=== PATIENT | female | born 1950 | race Caucasian/White ===

== ENCOUNTER 2016-12-30 08:24 | Day surgery (SDC) | payer OTHER, MEDICARE ==
[2016-12-30 08:30] VITALS: BMI 28.0
[2016-12-30] MEDS ORDERED: LIDOCAINE HCL/PF 2% SDV 5ML VIAL ONE (08:30)
[2016-12-30] MEDS ORDERED: PROPOFOL 20 ML ONE ×2 (08:31)
[2016-12-30 09:38] VITALS: TEMP 97.6
[2016-12-30 10:33] VITALS: BP 127/61; PULSE 72
--- NOTE | 2016-12-31 10:45 | PATH ---
Surgical Pathology Report Patient Name: SHELLEY HOUSTON [facility]. Rec. #: [id number] /Age/Gender: 1950 (Age: 66) / F Account: [id number] Location: [facility]-ENDOSCOPY Taken: 12/30/2016 Received: 12/30/2016 Reported: 12/31/2016 Physicians: Analia Garcia M.D. Specimen(s) Received A: CECAL POLYP B: RT. COLON POLYP Clinical History History of adenoma, rectal bleeding Polyps, diverticulosis Final Diagnosis A. CECUM, POLYP, BIOPSY/POLYPECTOMY: SESSILE SERRATED ADENOMA. B. COLON, RIGHT, POLYP, POLYPECTOMY: SESSILE SERRATED ADENOMA. Electronically Signed Kody Dorman M.D. Gross Description A. Received in formalin, labeled "biopsy cecal polyp" is a manley, irregular portion of soft tissue measuring 0.4 cm in greatest dimension. The specimen is submitted in toto in one cassette. B. Received in formalin, labeled "right colon polyp" is a manley, irregular portion of soft tissue measuring 0.6 cm in greatest dimension. The specimen is submitted in toto in one cassette. DL/12/30/2016 saudi12/30/2016
== END 2016-12-30 10:40 | disposition home or self-care (01) ==
LOC: JASU-ENDO 08:24
PROVIDERS: ATTEND Internal Medicine Gastroenterology
PROC: 0DBK8ZX Excision of Ascending Colon, Via Natural or Artificial Opening Endoscopic, Diagnostic (ICD-10-PCS; 2016-12-30)
PROC: 0DBH8ZX Excision of Cecum, Via Natural or Artificial Opening Endoscopic, Diagnostic (ICD-10-PCS; principal; 2016-12-30 09:00)
DX: Z12.11 Encounter for screening for malignant neoplasm of colon (principal); Z86.010 Personal history of colon polyps; D12.0 Benign neoplasm of cecum; D12.2 Benign neoplasm of ascending colon; K57.30 Diverticulosis of large intestine without perforation or abscess without bleeding; K64.8 Other hemorrhoids
CPT/HCPCS: 88305-TC

== ENCOUNTER 2021-11-12 04:38 | Day surgery (SDC) | payer OTHER, MEDICARE ==
[2021-11-12 09:23] VITALS: TEMP 98
[2021-11-12 10:05] VITALS: BP 116/45; PULSE 80
== END 2021-11-12 10:25 | disposition home or self-care (01) ==
LOC: JASU-ENDO 04:38
PROVIDERS: ATTEND Internal Medicine Gastroenterology
PROC: 0DJD8ZZ Inspection of Lower Intestinal Tract, Via Natural or Artificial Opening Endoscopic (ICD-10-PCS; principal; 2021-11-12 09:00)
DX: Z12.11 Encounter for screening for malignant neoplasm of colon (principal); K57.30 Diverticulosis of large intestine without perforation or abscess without bleeding; K64.8 Other hemorrhoids; Z86.010 Personal history of colon polyps